=== PATIENT | male | born 1990 | race Caucasian/White ===

== ENCOUNTER 2018-09-28 18:31 | Inpatient (IN) | payer MEDICAID ==
[~2018-09-28] VITALS: Ht 165.1 cm; Wt 60.4 kg
[2018-09-28] MEDS ORDERED: SODIUM CHLORIDE 0.9% 1000ML BAG (SEPSIS BOLUS) IV ONE (21:00)
[2018-09-28 21:21] LABS: CHLORIDE 96 mEq/L (98-107)
[2018-09-28 21:25] LABS: INR 1.2; PROTHROMBIN TIME 11.8 sec (9.6-11.0)
[2018-09-28] MEDS ORDERED: VANCOMYCIN 1 G PREMIX 200 ML IV ONE (22:00)
[2018-09-28] MEDS ORDERED: GENTAMICIN 100MG PREMIX 100 ML IV ONE (22:00)
[2018-09-28 22:12] LABS: CLARITY URINE CLEAR (CLEAR); COLOR URINE DARK YELLOW (YELLOW); KETONES URINE TRACE (NEGATIVE); LEUKOCYTE ESTERASE URINE 1+ (NEGATIVE); NITRITE URINE NEGATIVE (NEGATIVE); OCCULT BLOOD URINE NEGATIVE (NEGATIVE); PH URINE 5.5 (4.5-8.0); PROTEIN URINE TRACE (NEGATIVE); SPECIFIC GRAVITY URINE 1.028 (1.005-1.030)
[2018-09-28] MEDS ORDERED: CLONIDINE 0.1MG TABLET PO PRN (22:45)
[2018-09-28] MEDS ORDERED: KETOROLAC 15MG/ML VIAL IV PRN (22:45)
[2018-09-28] MEDS ORDERED: GUAIFENESIN 200MG/10ML SUGAR FREE UDC PO PRN (22:45)
[2018-09-28] MEDS ORDERED: MAGNESIUM/ALUMINUM HYDROXIDE/SIMETHICONE 30ML UDC PO PRN (22:45)
[2018-09-28] MEDS ORDERED: ONDANSETRON HCL 4MG/2ML INJ IV PRN (22:45)
[2018-09-28] MEDS ORDERED: NITROGLYCERIN 0.4MG TABLET SL SL PRN (22:45)
[2018-09-28] MEDS ORDERED: LORAZEPAM 0.5MG TABLET PO PRN (22:45)
[2018-09-28] MEDS ORDERED: LEVOFLOXACIN 500MG PREMIX 100 ML IV SCH (22:45)
[2018-09-28] MEDS ORDERED: KCL 20MEQ/100ML PREMIX 100 ML IV ONE (22:45)
[2018-09-28] MEDS ORDERED: POTASSIUM CHLORIDE 20MEQ TABLET SR PO ONE (22:45)
[2018-09-28] MEDS ORDERED: ZOLPIDEM TARTRATE 5MG TABLET PO PRN (22:45)
[2018-09-28 23:00] LABS: METHADONE URINE SCREEN NEGATIVE (NEGATIVE); OPIATES URINE SCREEN NEGATIVE (NEGATIVE)
[2018-09-28] MEDS ORDERED: KCL 20MEQ/100ML PREMIX 100 ML IV NR (23:00)
[2018-09-28 23:01] LABS: *AMPHETAMINES SCREEN URINE PRESUMTIVE POSITIVE (NEGATIVE); *BARBITURATES SCREEN URINE NEGATIVE (NEGATIVE); *BENZODIAZEPINES SCREEN URINE NEGATIVE (NEGATIVE); *COCAINE SCREEN URINE NEGATIVE (NEGATIVE); CANNABINOID URINE SCREEN PRESUMTIVE POSITIVE (NEGATIVE); PHENCYCLIDINE URINE SCREEN NEGATIVE (NEGATIVE)
[2018-09-29] VITALS (9 sets, daily range): BP systolic 97–131; BP diastolic 49–73
[2018-09-29 00:43] LABS: BASOPHILS % 0.4 % (0.0-2.0); EOSINOPHILS % 3.5 % (0.0-5.0); HEMOGLOBIN. 12.2 g/dL (14.0-18.0); LYMPHOCYTES % 16.2 % (20.0-50.0); MEAN CORPUSCULAR HEMOGLOBIN 30.7 pg (28.0-32.0); MEAN CORPUSCULAR VOLUME 93.1 fL (80.0-94.0); MEAN PLATELET VOLUME 7.5 fl (7.4-10.4); NEUTROPHILS % 65.9 % (40.0-76.0); PLATELET 241 x1000/uL (130-400); RED BLOOD CELL COUNT 3.97 mill/uL (4.7-6.1)
[2018-09-29 00:52] LABS: ETHANOL BLOOD < 10 mg/dL
[2018-09-29 00:55] LABS: LDL CHOLESTEROL 80 mg/dL (5-100)
[2018-09-29 00:56] LABS: TOTAL IRON BINDING CAPACITY 383 ug/dL (250-450)
[2018-09-29 00:57] LABS: HDL CHOLESTEROL 21 mg/dL (40-59)
[2018-09-29 01:50] LABS: VITAMIN B12 SERUM 352 pg/mL (211-911)
[2018-09-29 01:52] LABS: FOLIC ACID (FOLATE) SERUM > 20.00 ng/mL (>5.38)
[2018-09-29] MEDS: ACETAMINOPHEN 325MG TABLET PO PRN ×3 (03:01→21:35)
[2018-09-29] MEDS ORDERED: LEVOFLOXACIN 500MG PREMIX 100 ML IV SCH (08:00)
[2018-09-29] MEDS: FAMOTIDINE 20MG TABLET PO SCH ×2 (08:25→21:34)
[2018-09-29] MEDS: ENOXAPARIN 40MG/0.4ML SYR SUBCUT SCH (08:26)
[2018-09-29] MEDS: SODIUM CHLORIDE 0.9% 1,000 ML IV SCH ×2 (08:49→12:20)
[2018-09-29] MEDS: CEFTRIAXONE 1 G PREMIX 50 ML IV SCH (08:49)
[2018-09-29] MEDS ORDERED: CEFTRIAXONE 1 G PREMIX 50 ML IV SCH (09:00)
[2018-09-29 13:21] LABS: CHLORIDE 103 mEq/L (98-107)
[2018-09-29 13:22] LABS: BASOPHILS % 0.4 % (0.0-2.0); EOSINOPHILS % 2.9 % (0.0-5.0); HEMATOCRIT. 33.6 % (42.0-52.0); HEMOGLOBIN. 11.4 g/dL (14.0-18.0); LYMPHOCYTES % 11.7 % (20.0-50.0); MEAN CORPUSCULAR HEMOGLOBIN 30.6 pg (28.0-32.0); MEAN CORPUSCULAR VOLUME 90.1 fL (80.0-94.0); MEAN PLATELET VOLUME 8.4 fl (7.4-10.4); MONOCYTES % 13.1 % (2.0-8.0); NEUTROPHILS % 71.9 % (40.0-76.0); PLATELET 252 x1000/uL (130-400); RED BLOOD CELL COUNT 3.73 mill/uL (4.7-6.1)
[2018-09-29] MEDS ORDERED: CLINDAMYCIN 600 MG in DEXTROSE 5% WATER 50 ML IV SCH (16:30)
[2018-09-29] MEDS: CLINDAMYCIN 600MG PREMIX 50 ML IV SCH (18:03)
[2018-09-29] MEDS ORDERED: IOHEXOL-300 100 ML BOTTLE ONE (18:31)
[2018-09-30] VITALS (12 sets, daily range): BP systolic 80–109; BP diastolic 49–79
[2018-09-30] MEDS: SODIUM CHLORIDE 0.9% 1,000 ML IV SCH ×3 (01:45→22:13)
[2018-09-30] MEDS: CLINDAMYCIN 600MG PREMIX 50 ML IV SCH ×3 (01:45→18:16)
[2018-09-30] MEDS: ENOXAPARIN 40MG/0.4ML SYR SUBCUT SCH (09:00)
[2018-09-30] MEDS: FAMOTIDINE 20MG TABLET PO SCH ×2 (09:02→22:13)
[2018-09-30] MEDS: CEFTRIAXONE 1 G PREMIX 50 ML IV SCH (09:02)
[2018-09-30] MEDS: ACETAMINOPHEN 325MG TABLET PO PRN (09:02)
[2018-10-01] VITALS (9 sets, daily range): BP systolic 81–123; BP diastolic 35–76
[2018-10-01] MEDS: CLINDAMYCIN 600MG PREMIX 50 ML IV SCH ×2 (02:17→09:24)
[2018-10-01] MEDS: SODIUM CHLORIDE 0.9% 1,000 ML IV SCH ×2 (05:19→15:00)
[2018-10-01] MEDS: ENOXAPARIN 40MG/0.4ML SYR SUBCUT SCH (09:00)
[2018-10-01] MEDS: FAMOTIDINE 20MG TABLET PO SCH (09:23)
[2018-10-01] MEDS: CEFTRIAXONE 1 G PREMIX 50 ML IV SCH (09:24)
== END 2018-10-01 16:15 | disposition home or self-care (01) | DRG 720 ==
LOC: ER 20:58 → EDBEDREQ 21:38 → EDBEDREQTM 21:38 → ENRESERV 09-29 00:09 → 5EST 09-29 01:50
PROVIDERS: ADMIT Internal Medicine; ATTEND Internal Medicine
DX: A40.9 Streptococcal sepsis, unspecified (principal); E44.1 Mild protein-calorie malnutrition; E87.1 Hypo-osmolality and hyponatremia; N39.0 Urinary tract infection, site not specified; F19.10 Other psychoactive substance abuse, uncomplicated; D64.9 Anemia, unspecified; J03.90 Acute tonsillitis, unspecified; D63.8 Anemia in other chronic diseases classified elsewhere; R00.1 Bradycardia, unspecified; E87.6 Hypokalemia; F17.210 Nicotine dependence, cigarettes, uncomplicated; G89.29 Other chronic pain; J02.0 Streptococcal pharyngitis; Q74.3 Arthrogryposis multiplex congenita; Z59.0 Homelessness; Z68.22 Body mass index [BMI] 22.0-22.9, adult
CPT/HCPCS: 36415; 70491; 71045; 80061; 80305; 80320; 82550; 82607; 82746; 83036; 83540; 83550; 83605; 83735; 84145; 84443; 84484; 87070; 87430; 87804; 93005; 93970; 96361; 96365; 96367; 97161; 99291; C1893; J0696; J1580; J1650; J1956; J3370; J3480; J3490; J7030; J7050; Q9967; G0480